=== PATIENT | male | born 1985 | race Caucasian/White ===

== ENCOUNTER 2024-05-17 12:06 | Emergency (ER) | payer BC ==
[~2024-05-17] VITALS: Ht 167.6 cm; Wt 52.7 kg
[~2024-05-17 12:06] MED LIST: ALLEGRA ALLERG180 MG PO; COLACE 100100 MG/CAP PO; NO HOME MEDICATIONS
[2024-05-17 13:55] VITALS: BP 123/72; PULSE 95; TEMP 97.7
== END 2024-05-17 13:55 | disposition home or self-care (01) ==
LOC: COL.ER 12:06
DX: F41.9 Anxiety disorder, unspecified (principal)